=== PATIENT | female | born 1965 | race Caucasian/White ===

== ENCOUNTER 2023-10-22 21:50 | Emergency (ER) | payer OTHER, SELFPAY ==
[2023-10-22 21:52] VITALS: BP 150/95; PULSE 91; RESP 16; TEMP 36.8; O2SAT 100
[2023-10-23 00:19] VITALS: BP 135/91; PULSE 87; RESP 18; O2SAT 100
--- NOTE | 2023-10-23 01:00 | ED.GENADULT ---
HPI - General Adult General Chief complaint: Skin/Abscess/Foreign Body Stated complaint: rash Time Seen by Provider: 10/23/23 00:11 Source: patient Mode of arrival: ambulatory Limitations: no limitations History of Present Illness HPI narrative: This is a 57-year-old female who presents to the ED with chief complaint of rash onset around 6:00 p.m. tonight. Patient reports that she noticed some spots to her abdomen and then checked her back and saw continued red spots throughout the back. Reports that the rash seemed to have spread throughout the back in the abdomen and up into the neck. Reports it is intensely itchy. Denies any known exposures to allergens. She has allergy to doxycycline but has not taken any recently. Denies new soaps, detergents or lotions. Related Data Allergies Allergy/AdvReac Type Severity Reaction Status Date / Time doxycycline Allergy Swelling Verified 10/23/23 00:21 of Lip/Tongue/Throat Review of Systems Review of Systems: All systems as dictated in HPI Exam Narrative: GENERAL: Well-appearing, well-nourished, and in no acute distress. HEAD: Normocephalic, atraumatic. EYES: PERRLA and EOMI. ENT: Nares clear, no rhinorrhea or epistaxis. Mucous membranes moist. Oropharynx without tonsillar hypertrophy exudate or other lesions. NECK: Supple. No adenopathy or masses. CHEST: No respiratory distress. Clear to auscultation. No wheezes rales or rhonchi HEART: Regular rate and rhythm. No murmur heard. Normal peripheral pulses. ABDOMEN: Soft, nontender, nondistended, normal active bowel sounds. MSK: Normal range of motion. No edema. SKIN: Diffuse urticarial rash throughout the abdomen, back and posterior neck. No involvement of the palms or soles. No tenderness. NEURO: Alert and oriented x3. No focal deficits. PSYCH: Normal mood and affect. Course Vital Signs Vital signs: Vital Signs Temperature 98.2 F 10/22/23 21:52 Pulse Rate 91 10/22/23 21:52 Respiratory Rate 16 10/22/23 21:52 Blood Pressure 150/95 H 10/22/23 21:52 Pulse Oximetry 100 10/22/23 21:52 Oxygen Delivery Room Air 10/22/23 21:52 Temperature 98.2 F 10/22/23 21:52 Pulse Rate 87 10/23/23 00:19 Respiratory Rate 18 10/23/23 00:19 Blood Pressure 135/91 H 10/23/23 00:19 Pulse Oximetry 100 10/23/23 00:19 Oxygen Delivery Room Air 10/22/23 21:52 Medical Decision Making MDM Narrative Medical decision making narrative: This is a 57-year-old female who presents to the ED with chief complaint of rash beginning around 6:00 p.m. tonight. Vitals are normal. Exam shows diffuse urticarial rash to the back, neck and abdomen. She is unsure of any known specific allergic triggers for this. This is the 1st time she has had any kind of rash like this. No evidence of angioedema or airway compromise. Presentation consistent with hives. She will be given prescription for Medrol Dosepak. Encouraged to take Benadryl [id number]. Pt will be discharged in stable condition. Return precautions given and supportive measures discussed. Pt is understanding and agreeable with plan for discharge and follow-up with PCP. Vital Signs Vital Signs: Vital Signs Temperature 98.2 F 10/22/23 21:52 Pulse Rate 91 10/22/23 21:52 Respiratory Rate 16 10/22/23 21:52 Blood Pressure 150/95 H 10/22/23 21:52 Pulse Oximetry 100 10/22/23 21:52 Oxygen Delivery Room Air 10/22/23 21:52 Temperature 98.2 F 10/22/23 21:52 Pulse Rate 87 10/23/23 00:19 Respiratory Rate 18 10/23/23 00:19 Blood Pressure 135/91 H 10/23/23 00:19 Pulse Oximetry 100 10/23/23 00:19 Oxygen Delivery Room Air 10/22/23 21:52 Discharge Plan Discharge Clinical Impression: Urticaria Patient Disposition: Home, Self-Care Condition: Stable Instructions: Antibiotic Form, Urticaria (ED) Additional Instructions: Your exam shows hives which is the same as urticaria. Please take B
== END 2023-10-23 01:20 | disposition home or self-care (01) ==
PROVIDERS: Emergency Provider Physician Assistant; PCP Nurse Practitioner Family
DX: L50.9 Urticaria, unspecified (principal)
CPT/HCPCS: 99283